=== PATIENT | male | born 1985 | race Caucasian/White ===

== ENCOUNTER 2024-04-04 13:58 | Emergency (ER) | payer SELFPAY ==
[2024-04-04] MEDS: Lidocaine 2% Viscous Solution 15 ML UD PO ONE (14:31)
[2024-04-04] MEDS: Amoxicillin/Clavulanate K 875-125 MG Tab PO ONE (14:31)
[2024-04-04] MEDS: Ibuprofen 600 MG Tab PO ONE (14:31)
== END 2024-04-04 14:41 | disposition home or self-care (01) ==
LOC: MW.ED 13:58
DX: K02.9 Dental caries, unspecified (principal); Z79.899 Other long term (current) drug therapy
CPT/HCPCS: 99282; A9270; 99283